=== PATIENT | male | born 1995 | race Caucasian/White ===

== ENCOUNTER 2018-08-15 15:09 | Emergency (ER) | payer OTHER ==
[~2018-08-15] VITALS: Ht 180.3 cm; Wt 86.0 kg
[2018-08-15 15:13] VITALS: BP 152/104
--- NOTE | 2018-08-15 16:56 | NUR ---
PT AMBULATORY TO ROOM FROM LOBBY
== END 2018-08-15 18:45 | disposition home or self-care (01) ==
LOC: ED 18:15
DX: G44.219 Episodic tension-type headache, not intractable (principal)
CPT/HCPCS: 70450; 99284